=== PATIENT | male | born 1935 | race Caucasian/White ===

== ENCOUNTER 2023-10-25 08:00 | Outpatient (CLI) | payer MEDICARE, OTHER ==
--- NOTE | 2023-10-25 14:42 | XRAY Report ---
PROCEDURE: Chest 2V INDICATIONS: BACTERIAL PNEUMONIA TECHNIQUE: 2 views of the chest were acquired. COMPARISON: None. FINDINGS: Surgical changes and devices: None. Lungs and pleura: No pleural effusions or pneumothorax. Lungs are clear. Mediastinum: Mediastinal contours appear normal. Heart size is normal. Bones and chest wall: No suspicious bony lesions. Overlying soft tissues appear unremarkable. Emmy ntration of the right hemidiaphragm. IMPRESSION: No acute cardiopulmonary process. Reviewed by: Andre Hoff MD on 10/25/2023 2:41 PM PST Approved by: Andre Hoff MD on 10/25/2023 2:41 PM PST Station ID: [id number]
== END 2023-10-25 23:59 | disposition home or self-care (01) ==
LOC: DI.S 08:00
PROVIDERS: ATTEND Emergency Medicine
DX: J15.9 Unspecified bacterial pneumonia (principal)